=== PATIENT | female | born 1995 | race Caucasian/White ===

== ENCOUNTER 2020-09-22 06:08 | Emergency (ER) | payer MEDICAID ==
[~2020-09-22] VITALS: Ht 175.3 cm; Wt 60.9 kg
[2020-09-22 06:49] VITALS: BP 100/69
== END 2020-09-22 07:30 | disposition left against medical advice (07) ==
LOC: EMS 06:08
DX: L02.91 Cutaneous abscess, unspecified (principal); Z53.21 Procedure and treatment not carried out due to patient leaving prior to being seen by health care provider